=== PATIENT | female | born 2000 | race Two or more races ===

== ENCOUNTER 2025-06-11 19:46 | Emergency (ER) | payer OTHER ==
[~2025-06-11] VITALS: Ht 177.8 cm; Wt 61.2 kg
== END 2025-06-11 22:27 | disposition home or self-care (01) ==
LOC: ER 19:46
DX: G89.11 Acute pain due to trauma (principal); M54.2 Cervicalgia; V89.2XXA Person injured in unspecified motor-vehicle accident, traffic, initial encounter